=== PATIENT | female | born 1960 | race Caucasian/White ===

== ENCOUNTER → 2016-09-13 | Outpatient (CLI) | payer OTHER ==
--- NOTE | 2016-09-15 13:13 | MM ---
Reason for exam: screening (asymptomatic). Last mammogram was performed 12 years and 4 months ago. History: Patient is postmenopausal. Physical Findings: A clinical breast exam by your physician is recommended on an annual basis and results should be correlated with mammographic findings. MG Screening Mammo w CAD Bilateral CC and MLO view(s) were taken. Prior study comparison: May 22, 2004, bilateral screening mammogram. There are scattered fibroglandular densities. There is no discrete abnormality. ASSESSMENT: Negative, BI-RAD 1 RECOMMENDATION: Routine screening mammogram of both breasts in 1 year.
== END | disposition home or self-care (01) ==
LOC: RADMAMWWP 07:58
PROVIDERS: ATTEND Family Medicine
DX: Z12.31 Encounter for screening mammogram for malignant neoplasm of breast (principal)

== ENCOUNTER → 2018-02-26 | Outpatient (CLI) | payer BC ==
--- NOTE | 2018-02-26 09:57 | FL ---
EXAMINATION TYPE: FL barium swallow DATE OF EXAM: 02/26/2018 COMPARISON: None HISTORY: Food getting stuck at the distal esophageal region TECHNIQUE: A double air contrast UGI study is performed. FINDINGS: Fluoroscopy time: 39 seconds Images: 13 Esophagus dilates to normal caliber has normal contour to the gastroesophageal junction. Gastroesopha geal junction opens to normal caliber. Schatzki's ring is evident compatible with a small cells reduc ing hiatal hernia. A few tertiary contractions were observed on real-time observation. There is complete stripping of th e esophageal bolus in the horizontal drinking position. No reflux was evident.. IMPRESSIONS: 1. Mild presbyesophagus. 2. Soft reducing small sliding type hiatal hernia.
== END | disposition home or self-care (01) ==
LOC: RADFLWHC 08:42
PROVIDERS: ATTEND Family Medicine
DX: K22.8 Other specified diseases of esophagus (principal); K44.9 Diaphragmatic hernia without obstruction or gangrene
CPT/HCPCS: 74220

== ENCOUNTER → 2018-03-23 | Outpatient (CLI) | payer BC ==
--- NOTE | 2018-03-23 10:41 | MM ---
Reason for exam: screening (asymptomatic). Last mammogram was performed 1 year and 6 months ago. History: Patient is postmenopausal. Physical Findings: A clinical breast exam by your physician is recommended on an annual basis and results should be correlated with mammographic findings. MG Screening Mammo w CAD Bilateral CC and MLO view(s) were taken. Prior study comparison: September 13, 2016, bilateral MG screening mammo w CAD. May 22, 2004, bilateral screening mammogram. There are scattered fibroglandular densities. There are benign appearing round calcifications bilaterally. There is no discrete abnormality. ASSESSMENT: Benign, BI-RAD 2 RECOMMENDATION: Routine screening mammogram of both breasts in 1 year.
== END | disposition home or self-care (01) ==
LOC: RADNMMAIN 07:46
PROVIDERS: ATTEND Family Medicine
DX: Z12.31 Encounter for screening mammogram for malignant neoplasm of breast (principal)
CPT/HCPCS: 77067

== ENCOUNTER → 2018-03-29 | Outpatient (CLI) | payer BC | LOC: RADNMMAIN 07:52 | PROVIDERS: ATTEND Family Medicine | DX: Z53.9 Procedure and treatment not carried out, unspecified reason (principal) ==

== ENCOUNTER 2018-04-16 08:52 | Day surgery (SDC) | payer BC ==
[2018-04-15 09:46] VITALS: BMI 34.3
[~2018-04-16 08:52] MED LIST: LACTATED RINGERS 1,000 ML IV SCH
[2018-04-16 09:23] VITALS: RESP 16; TEMP 98.3
[2018-04-16] MEDS ORDERED: fentaNYL (PF) 50 MCG/ML 2 ML AMP ONE (10:45)
[2018-04-16] MEDS ORDERED: PROPOFOL 10 MG/ML 20 ML VIAL IV ONE (10:45)
[2018-04-16] MEDS ORDERED: LIDOCAINE 1% INJ 10MG/ML (20 ML MDV) ONE (10:45)
--- NOTE | 2018-04-16 11:00 | P.PCN ---
Date of Procedure: 04/16/18 Procedure(s) Performed: BRIEF HISTORY: Patient is a 57-year-old, pleasant, white female, scheduled for an upper endoscopy as a part of evaluation of intermittent dysphagia to solids for the last 3 months duration. Symptoms are often with meat and black and happens once or twice a week. She denies any heartburn. In view of the symptoms she is scheduled for an upper endoscopy with possible dilation.. PROCEDURE PERFORMED: Esophagogastroduodenoscopy with biopsy and dilation. PREOPERATIVE DIAGNOSIS: Intermittent dysphagia to solids for 3 months duration. IV sedation per anesthesia. PROCEDURE: After informed consent was obtained, the patient was brought into the endoscopy unit. IV sedation was administered by Anesthesia under continuous monitoring. Initially the Olympus GIF-140 video endoscope was inserted into the mouth. Esophagus intubated without any difficulty. It was gradually advanced into the stomach and duodenum and carefully examined. The bulb and the second part of the duodenum appeared normal. The scope at this time was withdrawn to the stomach, adequately insufflated with air, and upon careful examination, mucosa of the antrum, body, cardia and the fundus appeared normal. The scope was then withdrawn into the esophagus. The GE junction was located at 35 cm from the incisors. There was a distal esophageal stricture that was dilated using 12-15 mm TTS balloon for total of 90 seconds in a sequential fashion. There were linear erosions noted in the distal esophagus consistent with LA grade B reflux esophagitis. Rest of the esophagus appeared normal and the patient tolerated the procedure well. IMPRESSION: 1. Distal esophageal stricture status post balloon dilation using 12-15 mm TTS balloon as described above. 2. Multiple erosions in the distal esophagus consistent with LA grade B reflux esophagitis. RECOMMENDATIONS: The findings of this examination were discussed with the patient well as her family. She will be on clear liquid diet today. She was given a prescription for Protonix 40 mg daily and was briefly educated about antireflux measures. She'll be seen in the office in 2 months.
[2018-04-16 11:17] VITALS: BP 118/82; PULSE 76
== END 2018-04-16 11:44 | disposition home or self-care (01) ==
LOC: ORWHC2ENDO 08:52
PROVIDERS: ATTEND Internal Medicine Gastroenterology
DX: K22.2 Esophageal obstruction (principal); K21.9 Gastro-esophageal reflux disease without esophagitis; I10 Essential (primary) hypertension; Z79.82 Long term (current) use of aspirin; Z79.899 Other long term (current) drug therapy
CPT/HCPCS: 88305; 43239; 43249; J2001; J3010; J2704; C1726

== ENCOUNTER → 2021-12-09 | Outpatient (CLI) | payer OTHER ==
--- NOTE | 2021-12-09 16:05 | BD ---
EXAMINATION TYPE: Axial Bone Density DATE OF EXAM: 12/09/2021 COMPARISON: NONE CLINICAL HISTORY: 61 years year old Female. ICD-10 CODE: Z78.0 POST MENOPAUSAL W/O HRT Height: 63 Weight: 200.4 FRAX RISK QUESTIONS: Alcohol (3 or more units per day): NO Family History (Parent hip fracture): NO Glucocorticoids (More than 3mos): NO History of Fracture in Adulthood: NO Secondary Osteoporosis: 1. Type 1 Diabetes: NO 2. Hyperthyroidism: NO 3. Menopause before 45: NO 4. Malnutrition: NO 5. Chronic liver disease: NO Rheumatoid Arthritis: NO Current Tobacco Use: NO RISK FACTORS HISTORY OF: Hip Fracture (Right/Left): NO Spine Fracture: NO History of Wrist Fracture: NO Surgery to Spine/Hip(right/left)/Wrist (right/left): NO Family History of Osteoporosis: NO Active: NO Diet low in dairy products/other sources of calcium: NO Postmenopausal woman: YES Take estrogen and/or progesterone medications: NO Lost more than 2 inches in height since high school: NO Frequent falls: NO Poor Health: NO Hyperparathyroidism: NO Adrenal Insufficiency: NO MEDICATIONS: Prednisone or other steroids: NO Thyroid Medications: NO Osteoporosis Medications: NO Additional Medications: BP MEDS, REFLUX MEDS, EXAM MEASUREMENTS: Bone mineral densitometry was performed using the [employer] System. Bone mineral density as measured about the Lumbar spine is: ----- L1-L4(G/cm2): 1.375 T Score Values are as follows: ----- L1: 0.7 ----- L2: 0.3 ----- L3: 2.5 ----- L4: 2.5 ----- L1-L4: 1.6 BASELINE STUDY Bone mineral density about the R hip (g/cm2): 1.194 Bone mineral density about the L hip (g/cm2): 1.084 T Score values are as follows: -----R Neck: 1.1 -----L Neck: 0.3 -----R Total: 1.4 -----L Total: 1.0 BASELINE STUDY FRAX%s: The graph provided illustrates a 5.7% chance for a major osteoporotic fx and a 0.1% chance fo r the hips probability for fx in 10 years time. IMPRESSION: Normal (Values between +1 and -1 indicate normal bone mass). Consider repeating this study in 5 year s or sooner if there is some new clinical indication. NOTE: T-SCORE=SD OF THE YOUNG ADULT MEAN.
--- NOTE | 2021-12-10 20:06 | MM ---
Reason for Exam: Screening (asymptomatic). Last mammogram was performed 3 year(s) and 8 month(s) ago. Patient History: Menarche at age 10. First Full-Term at age 22. Postmenopausal. Risk Values: Isabelle 5 year model risk: 1.4%. NCI Lifetime model risk: 6.0%. Prior Study Comparison: 05/22/2004 Bilateral Screening Mammogram, [facility]. 09/13/2016 Bilateral Screening Mammogram, [facility]. 03/23/2018 Bilateral Screening Mammogram, [facility]. Tissue Density: There are scattered fibroglandular densities. Findings: Analyzed By CAD. Unchanged asymmetric density superior right MLO view. There is no suspicious group of microcalcifications or new suspicious mass in either breast. Overall Assessment: Benign, BI-RAD 2 Management: Screening Mammogram of both breasts in 1 year. 1. Patient should continue monthly self breast exams. 2. A clinical breast exam by your physician is recommended on an annual basis. 3. This exam should not preclude additional follow-up of suspicious palpable abnormalities. Electronically signed and approved by: Chanda Mccarty M.D. Radiologist
== END | disposition home or self-care (01) ==
LOC: RADMAMWWP 08:11
PROVIDERS: ATTEND Family Medicine
DX: Z12.31 Encounter for screening mammogram for malignant neoplasm of breast (principal); Z78.0 Asymptomatic menopausal state
CPT/HCPCS: 77067; 77080